=== PATIENT | male | born 1985 | race Caucasian/White ===

== ENCOUNTER 2017-03-17 13:15 | Emergency (ER) | payer OTHER ==
[~2017-03-17] VITALS: Ht 177.8 cm; Wt 80.3 kg
--- NOTE | ~2017-03-17 | CT4 ---
[facility] A Service of [facility] RADIOLOGY TEXT RESULTS PATIENT: JEANNIE ALVAREZ LOCATION: [place] : 83 UNIT #: [id number] AGE: [address]: Angela Santos MD SEX: M ORDER DR: [id number] [facility] [address] [place], [place] [address] [id number] MR#: [id number] Acc #: [id number] NAME: JEANNIE ALVAREZ : 1985 SEX: M STUDY DATE/TIME: 03/17/2017 15:20 UNIT: [facility] ROOM: STUDY DESCRIPTION: CT Abd and Pelv Wo Cont Attending Physician: Angela Santos M.D. Ordering Physician: Angela Santos M.D. Primary Care Physician: No Primary Care Physician MEDICAL IMAGING REPORT This report is preliminary unless electronic signature is present EXAMINATION CT of abdomen and pelvis without contrast. DATE 03/17/2017 HISTORY 31-year-old male with complaints. Right flank pain for 2 weeks, worse this morning. Difficulty urinating. Right lower quadrant pain. COMPARISON None. PROCEDURE 3 mm noncontrast axial images through the abdomen and pelvis. Enteric contrast not administered. Sagittal and coronal reformatted images obtained. This CT exam was performed with one or more of the following radiation dose reduction techniques: automatic exposure control, adjustment of mA and/or kV according to patient size, and iterative reconstruction. FINDINGS 7 mm stone seen within the right uterovesical junction just protruding to the urinary bladder lumen, and there is moderate right hydronephrosis and hydroureter. No intrarenal calculi are seen. The appendix is normal. The unopacified bowel appears nonthickened and noninflamed. Lung bases are clear. Liver, gallbladder, spleen, pancreas and adrenal glands are normal. PELVIS FINDINGS: Prostate and rectum are normal. [facility] aden[facility] RADIOLOGY TEXT RESULTS PATIENT: JEANNIE ALVAREZ LOCATION: [place] : 83 UNIT #: [id number] AGE: [address]: Angela Santos MD SEX: M ORDER DR: free fluid. IMPRESSION 1. 7 mm stone in the right ureterovesical junction just protruding into the urinary bladder lumen. Moderate to right hydronephrosis and hydroureter. 2. The appendix is normal. Dictated by... Vane Samuel M.D. THIS IS AN ELECTRONICALLY VERIFIED REPORT aVne Samuel M.D. at 03/18/2017 2:03 PM DAVID/joanne TD: 03/17/2017 22:04 JOB #: [id number] MEDICAL IMAGING REPORT Page 1 of 1 COPY
[~2017-03-17 13:15] MED LIST: ALBUTEROL17 GM INH; AMOXICILLIN500 M1 PO; ERYTHROMYC3.5 GM OPT OD; FLEXERIL10 MG PO; MEDROL4 MG/DOSE- PO; NO MEDICATIONS; ORUDIS75 M1 DOB; PREDNISONE PO; ULTRAM PO
[2017-03-17 14:25] LABS: URINE SOURCE CLEAN CATCH
[2017-03-17 14:34] LABS: URINE APPEARANCE CLEAR; URINE BILIRUBIN NEG (NEG); URINE BLOOD 1+ (NEG); URINE COLOR YELLOW; URINE GLUCOSE NEG (NEG); URINE KETONE NEG (NEG); URINE LEUKOCYTE ESTERASE TRACE (NEG); URINE NITRATE NEG (NEG); URINE PH 6.5 (5-8); URINE PROTEIN TRACE (NEG); URINE SPECIFIC GRAVITY 1.013 (1.003-1.035); URINE UROBILINOGEN 0.2 MG/DL (NEG)
[2017-03-17 14:37] LABS: URINE BACTERIA AUWI NEG (NEGATIVE); URINE SQUAMOUS EPITHELIAL CELL NONE SEEN /[HPF]
[2017-03-17 14:45] LABS: CULTURE INDICATED? NO
== END 2017-03-17 17:15 | disposition home or self-care (01) ==
LOC: CED 13:15
PROVIDERS: Emergency Medicine
DX: N23 Unspecified renal colic (principal); Z79.899 Other long term (current) drug therapy
CPT/HCPCS: 74176; 81003; 99284